=== PATIENT | female | born 1930 | race Caucasian/White ===

== ENCOUNTER → 2017-09-26 | Day surgery (SDC) | payer BC ==
[2017-09-01 10:49] VITALS: Ht 154.9 cm; Wt 70.5 kg
[~2017-09-26] VITALS: Ht 154.9 cm; Wt 70.5 kg
[~2017-09-26] MED LIST: ACETAMINOPHEN 325 MG TAB PO PRN; ARC10 PO; ASPCH81X PO; ATROPINE SULFATE 0.1 MG/ML 5ML SYR IV PRN; ATROPINE SULFATE 1% OP SOLN 2 ML BTL ONE; BRIMONIDINE TART 0.2% OP SOLN PER DROP CHARGE ONE; BSS 500ML IRRIG ONE; BSS FLUSH ONE; CLOP1TAB15 PO; COEN1CAP7 PO; CYM/30 PO; EpHEDrine SULFATE INJ 50 MG/ML AMP IV PRN; EpINEphrine INJ 1MG/ML AMP 1 MG/ML AMP ONE; FAMO1TAB71 PO; FRS/40 PO; GABA-113 PO; GABA1CAP5 PO; HEALON 10MG/ML 0.85 ML SYR INSTIL ONE; HYDR-4330 PO; INSDGI SC; IPRA1AER2 INH; LACTATED RINGER'S 1000ML 1,000 ML IV SCH; LIDOCAINE 3.5% OPH GEL PER APPLICATION CHARGE OPL SCH; LIDOCAINE 4% OP SOLN DROP CHARGE ONE; LIDOCAINE 4% OP SOLN DROP CHARGE OPL SCH; LIDOCAINE HCL 1% MPF 2 ML VIAL ONE; LIDOCAINE HCL 2% 2 ML VIAL (20MG/ML) ONE; LISI5TAB PO; LPR25 PO; MIDAZOLAM HCL 1 MG/ML 2ML VIAL ONE; MONT1TAB3 PO; MOXIFLOXACIN OPH SOLN PER DROP CHARGE ONE; MULT-190 PO; NAPHDRO11 OPB; NMN10 PO; NRN/600 PO; NVLG SC; OXGN; POVIDONE-IODINE OP SOLN 30 ML BTL ONE; PROPARACAINE 0.5% OP SOLN PER DROP CHARGE OPL SCH; PROPOFOL IV EMULSION 10 MG/ML 20 ML VIAL IV ONE; PRVC40 PO; SERT-234 PO; TETRACAINE HCL (OPHTH) 60 DROPS/4 ML BTL OP ONE; TOBRAMYCIN/DEXAMETHASONE OPH OINT PER APPLN CHARGE ONE; VNTHFA/IN INH
[2017-09-26] MEDS: MOXIFLOXACIN OPH SOLN PER DROP CHARGE OPL SCH ×3 (08:42→09:04)
--- NOTE | 2017-09-26 08:59 | History & Physical Bridge - [place] ---
H&P Re-Evaluation Bridge Note: I have examined the patient, reviewed the History & Physical and in the interval since the performance of the History & Physical I have noted the following changes of clinical significance: No changes noted
--- NOTE | 2017-09-26 10:34 | Discharge Instructions-SurgCtr ---
Discharge Instructions Date of Service Sep 26, 2017. 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 Post Anesthesia Instructions: If you have had General Anesthesia or IV Sedation: * Do not drive today. * Resume driving when surgeon permits. * Do not make important decisions or sign legal documents today. * Call surgeon for: 1. Temperature elevations greater than 101 degrees F. 2. Uncontrollable pain. 3. Excessive bleeding. 4. Persistent nausea and vomiting. 5. Medication intolerance (nausea, vomiting or rash). * For nausea and vomiting use only clear liquids such as: tea, soda, bouillon until nausea subsides, then gradually increase diet as tolerated. * If you have any concerns or questions, call your surgeon's office. If physician is unavailable and it is an emergency, call 911 or go to the nearest emergency room. . Instructions / Follow-Up Instructions / Follow-Up ACTIVITY RECOMMENDATIONS: * Bedrest- Eyes to the mikayla MEDICATIONS: Resume previous medications unless instructed otherwise by your surgeon. Eye drops (today and tomorrow): Vigamox - one drop in operative eye every 2 hours while awake Prednisolone 1% - one drop in operative eye every 2 hours while awake SPECIAL CARE INSTRUCTIONS: * If any problems or concerns, please call Dr. Ann's office at . * Keep plastic shield taped over eye to sleep at night. * Keep plastic shield taped over eye except to administer eye drops. * Keep plastic shield on until office visit the following day. FOLLOW UP VISIT: Follow-up with Dr. Ann in the [place] office as scheduled. If not already scheduled, please call the office at . Diet Recommendations Home Diet: resume previous diet Procedures Procedures Performed: Left Eye Descements Stripping Automated Endothelial Keratoplasty Pending Studies Studies pending at discharge: yes List of pending studies: donor rim culture Medical Emergencies . Who to Call and When: Medical Emergencies: If at any time you feel your situation is an emergency, please call 911 immediately. . Non-Emergent Contact Non-Emergency issues call your: Campground Caretaker . . "Provider Documentation" section prepared by Bonifacio Ann. .
[2017-09-26 10:35] VITALS: TEMP 36.3
--- NOTE | 2017-09-26 10:35 | [facility] Post Operative Brief Note ---
Immediate Operative Summary Operative Date Sep 26, 2017. Pre-Operative Diagnosis Left Eye Endothelial Corneal Dystrophy Post-Operative Diagnosis Same Procedure(s) Performed Left Eye Descements Stripping Automated Endothelial Keratoplasty Surgeon Dr. Ann Pharmacy Messenger Surgeon(s) None Estimated Blood Loss 0 Findings fuchs corneal dystrophy left eye Fluids (cc crystalloids) see anesthesia record Specimens Corneal Donor Rim sent for Routine Culture, Gram Stain, and Aerobic Drains none Anesthesia local with sedation Complication(s) None Disposition Recovery Room / PACU
--- NOTE | 2017-09-26 10:49 | OPERATIVE REPORT ---
DATE OF OPERATION: 09/26/2017 PREOPERATIVE DIAGNOSIS: Fuchs corneal dystrophy, left eye. POSTOPERATIVE DIAGNOSIS: Same. PROCEDURE PERFORMED: Descemet stripping automated endothelial keratoplasty, left eye. COMPLICATIONS: None. ESTIMATED BLOOD LOSS: None. ANESTHESIA: Local with sedation. DESCRIPTION OF PROCEDURE: After informed consent was obtained in the holding area, attention was first turned to the donor cornea. It was placed endothelial side up on a Conchita trephine and trephinated with an 8.25 mm Conchita trephine blade. It was covered in Optisol and then set aside. The patient was then brought back to the operating room where cardiac monitoring leads and oxygen by nasal cannula was administered by anesthesia. Gentle IV sedation was given, the patient's left eye was prepped and draped in usual sterile fashion. A wire lid speculum was placed in the left eye and the operating microscope was swung into position. Using 0.12 forceps and a supersharp blade, a paracentesis port was made at the 5 o'clock position of patient's left eye. 1% nonpreserved lidocaine was injected into the anterior chamber for anesthesia. A 2.2 mm keratome blade was then used to make a shelved clear cornea incision at the 3 o'clock position of patient's left eye. The previously used trephine blade was then inked and used to christoph the surface of the cornea for the 8.25 mm diameter. The anterior chamber was then filled with Healon and a reversed Sinskey hook was used to score and strip Descemet's membrane from within the marked area. Descemet stripper was then used to remove the membrane from the eye. A stromal quality engineering manager was then used along the periphery of the stromal bed to roughen the stromal bed. The primary incision was then marked for 4 mm and widened to that width. Irrigation-aspiration handpiece was then used to remove the viscoelastic material from the eye. The donor graft was then placed endothelial side up on the EndoSerter device and retracted into the EndoSerter. The EndoSerter was then used to inject the corneal graft into the anterior chamber. It was unfolded underneath BSS and air and a single 10-0 nylon suture was placed through the primary incision. A complete air fill of the eye was achieved and held for 15 minutes. Three drops of atropine were placed on the eye during this time. The cornea was covered in Healon during this time. Once 15 minutes elapsed, the Healon was removed from the eye and the interface was milked using a Violet Lasik roller. The cornea was recoated in Healon and another 10 minutes was allowed to elapse. At the conclusion of that 10 minutes, a partial air fluid exchange was done leaving behind a 60% air fill of the anterior chamber. ReSure sealant was then placed over the paracentesis as well as the primary incision. The wire lid speculum was then removed from the eye. Vigamox, brimonidine and TobraDex ointment were placed on the eye and the eye was shielded. The patient tolerated the procedure well and was taken to recovery area in stable condition. I attest to the content of the Intraoperative Record and any orders documented therein. Any exceptions are noted below. MTDD
[2017-09-26 11:51] VITALS: BP 100/64; PULSE 55; O2SAT 98
--- NOTE | 2017-09-26 12:04 | Anesthesia Progress Nt - [facility] ---
Anesthesia Post Op Note Date & Time Sep 26, 2017 at 12:04 Vital Signs Pain Intensity: 1.0 Vital Signs Past 12 Hours Date Time Temp Pulse Resp B/P (MAP) Pulse Ox O2 Delivery O2 Flow Rate FiO2 09/26/17 11:51 55 16 100/64 (76) 98 Room Air 09/26/17 11:38 46 16 101/54 (70) 93 Room Air 09/26/17 11:06 46 16 94/63 (73) 94 Room Air 09/26/17 10:35 36.3 46 16 121/50 (73) 99 Room Air 09/26/17 08:37 36.5 70 16 132/77 (95) 95 Room Air Notes Mental Status: alert / awake / arousable, participated in evaluation Pt Amnestic to Procedure: Yes Nausea / Vomiting: adequately controlled Pain: adequately controlled Airway Patency, RR, SpO2: stable & adequate BP & HR: stable & adequate Hydration State: stable & adequate Anesthetic Complications: no major complications apparent
== END | disposition home or self-care (01) ==
LOC: X.SURG 08:14
PROVIDERS: ATTEND Ophthalmology
DX: H18.51 Endothelial corneal dystrophy (principal); I10 Essential (primary) hypertension; E78.00 Pure hypercholesterolemia, unspecified; E11.40 Type 2 diabetes mellitus with diabetic neuropathy, unspecified; J45.909 Unspecified asthma, uncomplicated; M31.6 Other giant cell arteritis; F32.9 Major depressive disorder, single episode, unspecified; Z79.02 Long term (current) use of antithrombotics/antiplatelets; Z79.4 Long term (current) use of insulin; Z79.82 Long term (current) use of aspirin; Z79.899 Other long term (current) drug therapy

== ENCOUNTER → 2017-10-03 | Day surgery (SDC) | payer BC ==
[2017-09-30 07:49] VITALS: Ht 154.9 cm; Wt 70.5 kg
[~2017-10-03] VITALS: Ht 154.9 cm; Wt 70.5 kg
[~2017-10-03] MED LIST changes: -BSS 500ML IRRIG ONE; -BSS FLUSH ONE; -EpINEphrine INJ 1MG/ML AMP 1 MG/ML AMP ONE; -HEALON 10MG/ML 0.85 ML SYR INSTIL ONE; -HYDR-4330 PO; +HYDR-4380 PO; -MIDAZOLAM HCL 1 MG/ML 2ML VIAL ONE; -TETRACAINE HCL (OPHTH) 60 DROPS/4 ML BTL OP ONE
[2017-10-03] MEDS: MOXIFLOXACIN OPH SOLN PER DROP CHARGE OPL SCH ×3 (11:26→11:49)
[2017-10-03 13:05] VITALS: TEMP 36.6
--- NOTE | 2017-10-03 13:06 | Discharge Instructions-SurgCtr ---
Discharge Instructions Date of Service Oct 03, 2017. Visit Reason for Visit: Left Eye Detached Dsae Cornea Graft Discharge Discharge Diagnosis / Problem: detached DSAEK graft left eye Discharge Goals Goal(s): Improve function Medications Stopped Medications Name(s): Did not take insulin today. Only took most necessary meds this morning. Activity Recommendations Activity Limitations: per Instructions/Follow-up section Lifting Limitations: no more than 5 pounds Anesthesia . Post Anesthesia Instructions: If you have had General Anesthesia or IV Sedation: * Do not drive today. * Resume driving when surgeon permits. * Do not make important decisions or sign legal documents today. * Call surgeon for: 1. Temperature elevations greater than 101 degrees F. 2. Uncontrollable pain. 3. Excessive bleeding. 4. Persistent nausea and vomiting. 5. Medication intolerance (nausea, vomiting or rash). * For nausea and vomiting use only clear liquids such as: tea, soda, bouillon until nausea subsides, then gradually increase diet as tolerated. * If you have any concerns or questions, call your surgeon's office. If physician is unavailable and it is an emergency, call 911 or go to the nearest emergency room. . Instructions / Follow-Up Instructions / Follow-Up ACTIVITY RECOMMENDATIONS: * Bedrest- eyes to the mikayla MEDICATIONS: Resume previous medications unless instructed otherwise by your surgeon. Eye drops (today and tomorrow): Moxifloxacin - one drop operative eye 4 times daily Prednisolone 1% - one drop operative eye 4 times daily SPECIAL CARE INSTRUCTIONS: * If any problems or concerns, please call Dr. Ann's office at . cell [phone] * Keep plastic shield taped over eye to sleep at night. * Keep plastic shield taped over eye except to administer eye drops. * Keep plastic shield on until office visit the following day. FOLLOW UP VISIT: Follow-up with Dr. Ann in the [place] office as scheduled. If not already scheduled, please call the office at . Diet Recommendations Home Diet: resume previous diet Procedures Procedures Performed: Left Eye Refloatation Of Cornea Graft Pending Studies Studies pending at discharge: no Medical Emergencies . Who to Call and When: Medical Emergencies: If at any time you feel your situation is an emergency, please call 911 immediately. . Non-Emergent Contact Non-Emergency issues call your: Rx Specialist . . "Provider Documentation" section prepared by Bonifacio Ann. .
--- NOTE | 2017-10-03 13:07 | [facility] Post Operative Brief Note ---
Immediate Operative Summary Operative Date Oct 03, 2017. Pre-Operative Diagnosis Left Eye Detached DSAEK Graft Post-Operative Diagnosis Same Procedure(s) Performed Left Eye Refloatation Of Cornea Graft Surgeon Dr. Ann Bulb Grader Surgeon(s) None Estimated Blood Loss 0 Findings detached DSAEK graft left eye Fluids (cc crystalloids) see anesthesia record Specimens None Drains none Anesthesia local with sedation Complication(s) None Disposition Recovery Room / PACU
--- NOTE | 2017-10-03 13:35 | Anesthesia Progress Nt - [facility] ---
Anesthesia Post Op Note Date & Time Oct 03, 2017 at 13:34 Vital Signs Pain Intensity: 2 Vital Signs Past 12 Hours Date Time Temp Pulse Resp B/P (MAP) Pulse Ox O2 Delivery O2 Flow Rate FiO2 10/03/17 13:05 36.6 47 12 129/52 (77) 94 Room Air 10/03/17 11:43 36.5 51 18 96/60 (72) 94 Room Air Notes Mental Status: alert / awake / arousable, participated in evaluation Pt Amnestic to Procedure: Yes Nausea / Vomiting: adequately controlled Pain: adequately controlled Airway Patency, RR, SpO2: stable & adequate BP & HR: stable & adequate Hydration State: stable & adequate Anesthetic Complications: no major complications apparent
--- NOTE | 2017-10-03 13:49 | OPERATIVE REPORT ---
DATE OF OPERATION: 10/03/2017 PREOPERATIVE DIAGNOSIS: Detached DSAEK graft, left eye. POSTOPERATIVE DIAGNOSIS: Same. PROCEDURE PERFORMED: Refloat OF DSAEK graft, left eye. COMPLICATIONS: None. ESTIMATED BLOOD LOSS: None. ANESTHESIA: Local with sedation. DESCRIPTION OF PROCEDURE: After informed consent was obtained in the holding area, the patient was taken to the operating room, where cardiac monitoring leads and oxygen by nasal cannula was administered by anesthesia. Gentle IV sedation was given and the patient's left eye was prepped and draped in the usual sterile fashion. A wire lid speculum was placed in the left eye and the operating microscope was swung into position. Using a 30-gauge cannula with lidocaine on it, lidocaine was injected through the previously made paracentesis from the prior surgery at the 5 o'clock position of the patient's left eye. Air on a cannula was then used to go through the paracentesis to refloat the cornea back to the host surface. A reverse Sinskey hook was used to reposition the cornea into the proper position. A complete air fill of the eye was then achieved and held for 15 minutes, after which time a Violet Lasik roller was used to milk the corneal interface. Three drops of atropine were also placed on the eye. Another 10 minutes elapsed, after which time a partial air fluid exchange was done through a brand new paracentesis at the 1 o'clock position on the patient's left eye. This left behind a 60% air fill of the anterior chamber. The wire lid speculum was removed from the eye. Vigamox and TobraDex ointment were placed on the eye and the eye was shielded. The patient tolerated the procedure well and was taken to recovery area in stable condition. I attest to the content of the Intraoperative Record and any orders documented therein. Any exception s are noted below.
[2017-10-03 15:05] VITALS: BP 150/70; PULSE 56; O2SAT 96
== END | disposition home or self-care (01) ==
LOC: X.SURG 10:38
PROVIDERS: ATTEND Ophthalmology
DX: T86.848 Other complications of corneal transplant (principal); Y83.8 Other surgical procedures as the cause of abnormal reaction of the patient, or of later complication, without mention of misadventure at the time of the procedure